=== PATIENT | female | born 1970 | race American Indian/Alaskan Native ===

== ENCOUNTER 2021-09-24 19:30 | Emergency (ER) | payer SELFPAY ==
[2021-09-24 21:34] LABS: Hematocrit 29.5 % (30.3-42.9); Hemoglobin 9.5 gm/dl (10.1-14.3); Mean Corpuscular HGB Conc 32 % (30-34); Mean Corpuscular Volume 87 fl (79-97); Platelet Count 222 K/mm3 (140-440); Red Blood Count 3.39 M/mm3 (3.65-5.03); Red Cell Distribution Width 16.7 % (13.2-15.2)
[2021-09-24 21:51] LABS: Calcium 7.8 mg/dL (8.4-10.2)
[2021-09-25] MEDS ORDERED: cloNIDine 0.2 MG TAB PO ONE (03:08)
[2021-09-25 10:45] VITALS: BP 214/114
== END 2021-09-25 10:48 | disposition home or self-care (01) ==
LOC: ED 19:30
DX: Z00.00 Encounter for general adult medical examination without abnormal findings (principal); Z53.21 Procedure and treatment not carried out due to patient leaving prior to being seen by health care provider
CPT/HCPCS: 36415; 80048; 85027